=== PATIENT | female | born 1960 | race Two or more races ===

== ENCOUNTER → 2020-11-05 | Outpatient (CLI) | payer OTHER ==
[~2020-11-05] MED LIST: ALPR0.25 PO; ATOR20TA37 PO; FLUR30CA3 PO; METH5TAB6 PO; OMNIPAQUE 350 MG/ML, 100ML BOTTLE ONE
== END | disposition home or self-care (01) ==
LOC: CFH 07:14 → EDSTATUS 09:45
PROVIDERS: ATTEND Registered Nurse
DX: K57.30 Diverticulosis of large intestine without perforation or abscess without bleeding (principal); R10.30 Lower abdominal pain, unspecified; K64.8 Other hemorrhoids; R14.0 Abdominal distension (gaseous)
CPT/HCPCS: 74177; 82565; Q9967